=== PATIENT | female | born 1975 | race Caucasian/White ===

== ENCOUNTER 2024-01-02 07:23 | Emergency (ER) | payer MEDICARE, MEDICAID ==
[~2024-01-02] VITALS: Ht 152.4 cm; Wt 56.1 kg
[2024-01-02 07:46] VITALS: BP 119/58; PULSE 76; RESP 16; TEMP 98; O2SAT 100
== END 2024-01-02 08:52 | disposition left against medical advice (07) ==
LOC: ER 07:24
DX: R44.0 Auditory hallucinations (principal); Z53.21 Procedure and treatment not carried out due to patient leaving prior to being seen by health care provider
CPT/HCPCS: 99281

== ENCOUNTER 2024-07-31 13:36 | Emergency (ER) | payer MEDICARE, MEDICAID ==
--- NOTE | 2024-07-31 13:45 | NUR ---
Pt was taken into triage. she decided that she did not want to be seen and stood up in triage and said she was leaving. rn asked the pt if she was sure and she said yes "i want to leave" so pt left without being seen
== END 2024-07-31 13:49 | disposition left against medical advice (07) ==
LOC: ER 13:37
DX: Z53.21 Procedure and treatment not carried out due to patient leaving prior to being seen by health care provider (principal)

== ENCOUNTER 2025-07-30 16:54 | Emergency (ER) | payer MEDICARE, MEDICAID ==
[~2025-07-30] VITALS: Ht 165.1 cm; Wt 63.6 kg
[~2025-07-30 16:54] MED LIST: ATOR20TA66 PO; COG1T PO; FOLI1TAB27 PO; OLAN10TA73 PO; PANT40TA54 PO; thiamine tablet PO
--- NOTE | 2025-07-30 17:54 | Physician Documentation ---
History of Present Illness ~ Chief Complaint: Mental Health Eval Stated Complaint: MH Time Seen by MD: 17:38 OK to notify your PCP?: Yes Source: patient Mode of Arrival: POV Exam Limitations: no limitations HPI This 49-year-old female with a known history of schizophrenia presents stating she has had intermittent vomiting and diarrhea over the last 2-3 days. States she has not been eating well. She says that when she drinks her throat feels funny. Her other concerns include auditory hallucinations which are commanding in nature. States that the voices are commanding her to harm herself via taking medications. She says the voices also say they are going to "kick her in her face." Patient acknowledges not taking her psychiatric medications Denies any shortness of breath or cough and does not present with any signs of respiratory distress Day of Onset: Jul 30, 2025 Medication Reconciliation Allergies: Coded Allergies: No Known Allergies (Unverified , 07/30/25) Miscellaneous Medications Home Med List (No Home Medications), (Reported) Discontinued Medications Atorvastatin Calcium (Atorvastatin Calcium), 40 MG PO DAILY Discontinued Reason: patient no longer taking Benztropine Mesylate (Benztropine Mesylate), 0.5 MG PO BID Discontinued Reason: patient no longer taking Folic Acid* (Folic Acid*), 1 MG PO DAILY Discontinued Reason: patient no longer taking Olanzapine (Olanzapine), 20 MG PO HS Discontinued Reason: patient no longer taking Pantoprazole Sodium (Pantoprazole Sodium), 40 MG PO BKF Discontinued Reason: patient no longer taking [thiamine tablet], 100 MG PO DAILY Discontinued Reason: patient no longer taking Past Medical History Past Medical History: Schizophrenia Past Surgical History: noncontributory Smoking Status: Former smoker Alcohol Use: None Drug Use: none Review of Systems All Other Systems at this time: Reviewed and Negative ROS As stated above in the HPI, otherwise all systems are reviewed and negative. Psychiatric: Reports: hallucinations Physical Exam Vital Signs: RN Vital Signs have been reviewed: Yes, Temperature: 97.8, Source: Temporal, Heart Rate: 98, Respiratory Rate: 18, BP: 156/61, Pulse Oximetry: 97, Weight: 63.640 Physical Exam General: Alert, no apparent distress. Respiratory: Lungs clear, no respiratory distress. Cardiovascular: Regular rate and rhythm, no murmurs. . Neurologic: Oriented x4. Psychiatric: Pressured speech anxious appearing Skin: Normal color, warm and dry. No edema, no ecchymosis. Progress Progress Note 2121: Transfer orders for [facility]: At this time there is no evidence of an emergent medical condition that would preclude (admission/transfer) to a psychiatric unit via [facility] protocol for further psychiatric, as well as medical evaluation and treatment. At this time I have no reason to believe that transfer via [facility] protocol would have serious medical compromise in the patient's health. 07/31/25 0944: Discussed case with mental health clinician. No suicidal ideation. Lives with mom who agrees to continue to support patient and will d/c with outpatient care. Results/Orders Reviewed/noted all lab results: Yes Results/Orders Medications Received in ER Medications (Trade) Dose Ordered Sig/Leta Route PRN Reason Start Time Stop Time Status Last Admin Dose Admin (ZyPREXA tablet) 10 mg ONCE PO 07/31/25 08:33 07/31/25 08:36 10 MG Vital Signs 07/30/25 07/30/25 07/30/25 07/30/25 17:35 18:45 22:04 22:20 Temp 97.8 97.8 Pulse 98 68 Resp 18 16 14 16 B/P (MAP) 156/61 124/82 (96) Pulse Ox 97 98 07/31/25 06:08 Temp 97.8 Pulse 65 Resp 16 B/P (MAP) 98/62 (74) Pulse Ox 95 Laboratory Tests Test 07/30/25 18:04 07/30/25 18:14 07/30/25 20:02 07/31/25 05:23 SARS-CoV-2 Antigen (Rapid) Negative White Blood Count 5.6 Red Blood Count 4.24 Hemoglobin 13.5 Hematocrit 39.9 Mean Corpuscular Volume 94.0 Mean Corpuscular Hemoglobin 31.7 H Mean Corpuscular Hemoglobin Concent 33.7 Red Cell Distribution Width 14.2 Platelet Count 211 Mean Platelet Volume 8.8 Neutrophils (%) (Auto) 68.6 Lymphocytes (%) (Auto) 21.4 Monocytes (%) (Auto) 8.4 Eosinophils (%) (Auto) 0.8 Basophils (%) (Auto) 0.8 Neutrophils # (Auto) 3.9 Lymphocytes # (Auto) 1.2 Monocytes # (Auto) 0.5 Eosinophils # (Auto) 0.0 Basophils # (Auto) 0.0 CBC Comment Chemistry Comments Sodium Level 139 Potassium Level 4.0 Chloride Level 104 Carbon Dioxide Level 22.0 L Anion Gap 13 Blood Urea Nitrogen 10 Creatinine 0.75 Estimated GFR/1.73 m2 82 BUN/Creatinine Ratio 13.3 Glucose Level 92 Calcium Level 9.4 Albumin 4.0 Thyroid Stimulating Hormone (TSH) 2.81 Ethyl Alcohol Level < 10 Urine Specimen Description Cln catch midstream Urine Color Yellow Urine Clarity Clear Urine pH 6.0 Urine Specific Decker >=1.030 Urine Protein Negative Urine Glucose (UA) Negative Urine Ketones Trace H Urine Occult Blood Negative Urine Nitrite Negative Urine Bilirubin Small Urine Urobilinogen 0.2 Urine Leukocyte Esterase Negative Volume Urine Centrifuged 10 ml Urine HCG, Qualitative Negative Urine Comment Urine Opiates Screen Negative Urine Methadone Screen Positive Urine Fentanyl Screen Negative Urine Barbiturates Screen Negative Urine Phencyclidine Screen Negative Urine Amphetamines Screen Negative Urine Benzodiazepines Screen Positive Urine Cocaine Screen Negative Urine Cannabinoids Screen Negative Drug Screen Comment Re-Evaluation Re-Evaluation : Re-Evaluation: Improved Progress Patient was seen and examined. Patient is given reassurance. Patient laborato ry work was obtained CBC shows no signs of infection chemistry was within normal limits alcohol level is negative. Tox screen is pending but the patient is medically cleared. Patient's was given Zyprexa and is on a 1799 pending mental health evaluation Medical Decision Making Differential Dx:Considerations: Include: Alcohol abuse, Anxiety, Bipolar disorder, Conversion disorder, Depression, Encephaloathy, Homicidal, Panic disorder, Personality disorder, Schizophrenia, Substance abuse, Suicidal, Other Departure Time of Disposition: 09:42 Disposition: 01 HOME / SELF CARE / HOMELESS Impression: Primary Impression: Schizophrenia Qualified Codes: F20.9 - Schizophrenia, unspecified Condition: Fair Discharge Instructions: Schizophrenia, Suicidal Feelings: How to Help Yourself Additional Instructions: Please followup with your psychiatric care provider. Return if worse. Referrals: NO PRIMARY CARE PROVIDER (PCP) Education Educated: Patient Educated regarding: diagnosis, treatment, prognosis, need for follow up Signature Scribe Signature: Scribed for Abel Palomares MD by Mary Mendoza. 07/30/25 19:12 Attestation: Scribed for Aleah Hastings Np by Aleah Lambert NP . 07/30/25 17:58 The note accurately reflects work and decisions made by me.Emmy Lambert NP 07/31/25 09:46 ALEAH HASTINGS NP Jul 30, 2025 17:54 ABEL PALOMARES MD Jul 30, 2025 19:12 EMMY MCCARTHY NP Jul 31, 2025 09:43
[2025-07-30 19:47] LABS: MEAN PLATELET VOLUME 8.8 FL (7.4-10.4); RED CELL DISTRIBUTION WIDTH 14.2 % (11.5-14.5)
[2025-07-30 20:45] LABS: CREATININE 0.75 MG/DL (0.40-0.90); TOTAL CARBON DIOXIDE 22.0 MMOL/L (24-32); eCRCL 81 ML/MIN; eGFR 82 ML/MIN
[2025-07-30 20:46] LABS: ETHANOL < 10 MG/DL (<10)
[2025-07-30] MEDS ORDERED: NO HOME MEDS (22:27)
[2025-07-31 06:08] VITALS: BP 98/62; PULSE 65; RESP 16; TEMP 97.8; O2SAT 95
[2025-07-31 06:15] LABS: LEUKOCYTE ESTERASE ,URINE NEGATIVE (Neg); NITRITES, URINE NEGATIVE (Neg); OCCULT BLOOD,URINE NEGATIVE (Neg)
[2025-07-31 06:17] LABS: URINE HCG NEGATIVE (NEG)
[2025-07-31 06:19] LABS: UA COLLECTION TYPE CLN CATCH MIDSTREAM; URINE AMPHETAMINE SCREEN NEGATIVE (Neg); URINE BARBITUATE SCREEN NEGATIVE (Neg); URINE BENZODIAZEPINES SCREEN POSITIVE (Neg); URINE CANNABINOID SCREEN NEGATIVE (Neg); URINE COCAINE SCREEN NEGATIVE (Neg); URINE METHADONE SCREEN POSITIVE (Neg); URINE OPIATE SCREEN NEGATIVE (Neg); URINE PHENCYCLIDINE SCREEN NEGATIVE (Neg)
[2025-07-31] MEDS ORDERED: OLANZAPINE 5 MG TABLET PO SCH (08:26)
== END 2025-07-31 10:31 | disposition home or self-care (01) ==
LOC: ER 16:54
DX: F20.9 Schizophrenia, unspecified (principal); R11.10 Vomiting, unspecified; R19.7 Diarrhea, unspecified; Z87.891 Personal history of nicotine dependence; Z20.822 Contact with and (suspected) exposure to COVID-19; Z79.899 Other long term (current) drug therapy
CPT/HCPCS: 36415; 80048; 80305; 81003; 81025; 84443; 85025; 87811; 99284; G0480; 80320

== ENCOUNTER 2025-08-24 17:44 | Emergency (ER) | payer MEDICARE, MEDICAID ==
[~2025-08-24] VITALS: Ht 152.4 cm; Wt 72.0 kg
[~2025-08-24 17:44] MED LIST changes: -ATOR20TA66 PO; -COG1T PO; -FOLI1TAB27 PO; +NO HOME MEDS; -OLAN10TA73 PO; -PANT40TA54 PO; -thiamine tablet PO
--- NOTE | 2025-08-24 18:09 | Physician Documentation ---
History of Present Illness ~ Chief Complaint: Nausea Stated Complaint: N/V Time Seen by MD: 18:02 HPI 50-year-old female, history of schizophrenia, presenting with nausea and vomiting History is somewhat limited from the patient. She tells me that she has had nausea and vomiting over the past day or 2. She tells me it seems related to acid reflux symptoms. She reports significant burning up into her chest. She denies any current abdominal pain. She also does have a cough. Per EMS, they were concerned for possible aspiration. The patient also was not very responsive, and reportedly she takes her psychiatric medications intermittently or sometimes more than prescribed. No reported fevers. Denies diarrhea. Medication Reconciliation Allergies: Coded Allergies: No Known Allergies (Unverified , 07/30/25) Scheduled Omeprazole (Omeprazole), 1 CAP PO DAILY Sucralfate (Sucralfate), 1 TAB PO Q6H Scheduled PRN ONDANSETRON ODT 4mg tablet (Ondansetron Odt), 1 TAB PO Q6H PRN PRN for nausea/vomiting Miscellaneous Medications Home Med List (No Home Medications), (Reported) Past Medical History Past Medical History: Schizophrenia Past Surgical History: noncontributory Alcohol Use: None Drug Use: none Review of Systems Constitutional: Denies: fever Respiratory: Reports: cough Gastrointestinal: Reports: nausea, vomiting; Denies: abdominal pain Physical Exam Vital Signs: Temperature: 99.6, Source: Oral, Heart Rate: 75, Respiratory Rate: 20, BP: 116/77, Pulse Oximetry: 97, Weight: 72.000 Physical Exam General: This is a middle-aged woman lying in bed with her eyes closed, does awaken to voice HEENT: Atraumatic, oropharynx appears dry, with dried vomitus around the mouth and nose Heart: Regular rate and rhythm, normal-appearing peripheral perfusion Lungs: Coarse breath sounds bilateral, has coarse upper airway noises as well, occasional wet sounding cough, normal work of breathing, normal oxygen saturation on room air Abdomen: Soft, nondistended, nontender all quadrants, no rebound or guarding Neuro: The patient is lying in bed with her eyes closed, does awaken to voice, does intermittently answer questions very clearly, sometimes does not really answer Psychiatric: Labile affect Progress Results/Orders Results/Orders Orders - JENNY MABRY MD Chest,Single View (08/24/25 18:15) General Nursing Order (08/24/25 ) Completed Orders - JENNY MABRY MD Cbc/Diff (08/24/25 18:15) CMP (08/24/25 18:15) Lipase (08/24/25 18:15) Normal Saline 1000ml (0.9% Sodium Chlori (08/24/25 18:30) Ondansetron Inj. (Zofran 4mg/2ml Vial) (08/24/25 18:30) Pantoprazole 40mg Iv (Protonix 40mg Iv) (08/24/25 18:30) Mag & Alum Hydrox/Simeth Susp (Maalox Or (08/24/25 18:30) Chest,Single View (08/24/25 18:15) Acetaminophen 325mg Tablet (Tylenol Tabl (08/24/25 20:50) Medications Received in ER Medications (Trade) Dose Ordered Sig/Leta Route PRN Reason Start Time Stop Time Status Last Admin Dose Admin Sodium Chloride 1,000 ml @ 1,000 mls/hr ONCE ONCE IV 08/24/25 18:30 08/24/25 19:29 DC 08/24/25 19:37 1,000 MLS/HR (Zofran 4mg/2ml vial) 4 mg ONCE ONCE IV 08/24/25 18:30 08/24/25 18:31 DC 08/24/25 19:42 4 MG (Protonix 40mg IV) 40 mg ONCE ONCE IV 08/24/25 18:30 08/24/25 18:31 DC 08/24/25 19:42 40 MG (Maalox oral suspension) 30 ml ONCE ONCE PO 08/24/25 18:30 08/24/25 18:31 DC 08/24/25 19:41 30 ML (Tylenol tablet) 650 mg ONCE ONCE PO 08/24/25 20:50 08/24/25 20:51 DC 08/24/25 21:00 650 MG Vital Signs 08/24/25 08/24/25 08/24/25 08/24/25 17:58 18:28 18:48 21:01 Temp 99.6 100.3 Pulse 75 78 78 Resp 20 16 16 16 B/P (MAP) 116/77 127/106 (113) 110/41 (64) Pulse Ox 97 94 97 O2 Flow Rate 0 08/24/25 08/24/25 22:20 22:43 Temp 100.3 98.6 Pulse 82 Resp 16 B/P (MAP) 97/54 (68) Pulse Ox 98 O2 Flow Rate 0 Laboratory Tests Test 08/24/25 18:30 White Blood Count 12.2 H Red Blood Count 3.63 L Hemoglobin 11.2 L Hematocrit 33.8 L Mean Corpuscular Volume 93.3 Mean Corpuscular Hemoglobin 30.8 Mean Corpuscular Hemoglobin Concent 33.0 Red Cell Distribution Width 15.0 H Platelet Count 187 Mean Platelet Volume 8.4 Neutrophils (%) (Auto) 92.2 H Lymphocytes (%) (Auto) 3.4 L Monocytes (%) (Auto) 4.2 Eosinophils (%) (Auto) 0.1 Basophils (%) (Auto) 0.1 Neutrophils # (Auto) 11.2 H Lymphocytes # (Auto) 0.4 L Monocytes # (Auto) 0.5 Eosinophils # (Auto) 0.0 Basophils # (Auto) 0.0 CBC Comment Sodium Level 141 Potassium Level 4.7 Chloride Level 106 Carbon Dioxide Level 29.2 Anion Gap 6 L Blood Urea Nitrogen 11 Creatinine 0.82 Estimated GFR/1.73 m2 73 BUN/Creatinine Ratio 13.4 Glucose Level 136 H Calcium Level 8.5 Total Bilirubin 0.3 Aspartate Amino Transf (AST/SGOT) 40 H Alanine Aminotransferase (ALT/SGPT) 41 Alkaline Phosphatase 60 Total Protein 6.9 Albumin 3.1 L Globulin 3.8 Albumin/Globulin Ratio 0.8 L Lipase 25 Chemistry Comments EKG/XRAY/CT/US/VASC/MRI Chest X-Ray : Additional Comments I personally interpreted the x-ray, and it shows: No focal consolidation to suggest aspiration pneumonia, no pulmonary edema, no pneumothorax Medical Decision Making Additional info obtained from: family Findings Further history obtained from the patient's mother Additional Comments Differential includes gastritis, upper GI bleed, viral syndrome, medication reaction, dehydration, electrolyte derangement, aspiration pneumonia Assessment The patient presents with nausea and vomiting, reports acid reflux type symptoms, and also has a cough with reported concern for aspiration. Here in the ED, her vitals are normal she is afebrile and is not hypoxic. She was given IV fluids, nausea medicine, and antacid medication. Chest x-ray without obvious aspiration or pneumonia. Labs overall are unremarkable. After treatment she felt much better and was able to eat and drink without vomiting. And requested to go home. She was initially very sedated, which seemed likely related to her psychiatric medications. She will be discharged home with nausea medications and omeprazole/sucralfate for gastritis/esophagitis. She was encouraged to follow up with the primary doctor for further treatment and strict return precautions were given. Departure Time of Disposition: 22:04 Disposition: HOME / SELF CARE / HOMELESS Impression: Primary Impression: Nausea and vomiting Additional Impression: Gastritis Condition: Improved Referrals: NO PRIMARY CARE PROVIDER (PCP) Prescriptions Sucralfate (Sucralfate) 1 Gram Tablet 1 TAB PO Q6H for 30 Days, #120 TAB 0 Refills Prov: JENNY MABRY MD 08/24/25 Omeprazole (Omeprazole) 20 Mg Capsule.dr 1 CAP PO DAILY for 30 Days, #30 CAP 0 Refills Prov: JENNY MABRY MD 08/24/25 ONDANSETRON ODT 4mg tablet (ONDANSETRON ODT) 4 Mg Tab.rapdis 1 TAB PO Q6H PRN PRN for nausea/vomiting for 4 Days, #16 TAB 0 Refills Prov: JENNY MABRY MD 08/24/25 Education Educated: Patient Educated regarding: diagnosis, treatment Signature Scribe Signature: [email or web address] Attestation: JENNY Varghese MD Aug 24, 2025 18:09
[2025-08-24 18:38] LABS: MEAN PLATELET VOLUME 8.4 FL (7.4-10.4); RED CELL DISTRIBUTION WIDTH 15.0 % (11.5-14.5)
--- NOTE | 2025-08-24 18:49 | RADIOLOGY REPORT ---
EXAM: DI CHEST,SINGLE VIEW HISTORY: cough, vomiting, concern for aspiration TECHNIQUE: 1 view of the chest COMPARISON: DI CHEST,SINGLE VIEW on DOS: 06/03/25 FINDINGS/IMPRESSION: LUNGS: No pleural effusion, consolidation, or pneumothorax. Atelectasis in the left lung base. MEDIASTINUM: Unremarkable. BONES: No acute osseous abnormality. OTHER: Small sliding hiatal hernia
[2025-08-24 18:52] LABS: CREATININE 0.82 MG/DL (0.40-0.90); TOTAL CARBON DIOXIDE 29.2 MMOL/L (24-32); eCRCL 58 ML/MIN; eGFR 73 ML/MIN
[2025-08-24] MEDS: normal saline 1000ml 1,000 ML IV ONE (19:37)
[2025-08-24] MEDS: mag hydrox/Alum hydrox/simeth 30ml oral suspension PO ONE (19:41)
[2025-08-24] MEDS: ondansetron/PF 4mg/2ml inj IV ONE (19:42)
[2025-08-24] MEDS ORDERED: OMEP20CA15 PO (22:05)
[2025-08-24] MEDS ORDERED: ONDA-243 PO (22:05)
[2025-08-24] MEDS ORDERED: SUCR1TAB PO (22:05)
[2025-08-24 22:20] VITALS: BP 97/54; PULSE 82; RESP 16; O2SAT 98
[2025-08-24 22:43] VITALS: TEMP 98.6
== END 2025-08-24 22:58 | disposition home or self-care (01) ==
LOC: ER 17:46
DX: K29.70 Gastritis, unspecified, without bleeding (principal); K21.00 Gastro-esophageal reflux disease with esophagitis, without bleeding; F20.9 Schizophrenia, unspecified; Z79.899 Other long term (current) drug therapy
CPT/HCPCS: 36415; 71045; 80053; 83690; 85025; 96361; 96374; 96375; 99284; A6258; J2405; J2470; J7030